=== PATIENT | female | born 1960 | race Caucasian/White ===

== ENCOUNTER → 2020-06-28 | Outpatient (CLI) | payer OTHER ==
--- NOTE | 2020-06-28 12:59 | XR ---
EXAMINATION TYPE: XR chest 2V DATE OF EXAM: 06/28/2020 COMPARISON: Chest x-ray CTA chest August 12, 2015 HISTORY: Covid 19 +, 2 weeks ago with chest pain TECHNIQUE: Frontal and lateral views of the chest are obtained. FINDINGS: There is no focal air space opacity, pleural effusion, or pneumothorax seen. The cardiac silhouette size remains within normal limits. The osseous structures are intact. Cholecystectomy cl ips are present. IMPRESSION: No acute cardiopulmonary process currently.
== END | disposition home or self-care (01) ==
LOC: RADXRMAIN 12:15
PROVIDERS: ATTEND Nurse Practitioner Family
DX: R07.1 Chest pain on breathing (principal)
CPT/HCPCS: 71046

== ENCOUNTER 2021-04-22 17:30 | Observation (INO) | payer OTHER ==
--- NOTE | 2021-04-22 18:58 | XR ---
EXAMINATION TYPE: XR chest 2V DATE OF EXAM: 04/22/2021 COMPARISON: 06/28/2020 HISTORY: Chest pain TECHNIQUE: 2 views FINDINGS: Heart and mediastinum are normal. Lungs are clear. Diaphragm is normal. Bony thorax is inta ct. Pulmonary vascularity is normal. IMPRESSION: Normal chest. No change
[2021-04-22 19:06] LABS: Basophils % (A) 1 %; Eosinophils # (A) 0.2 k/uL (0-0.7); Eosinophils % (A) 2 %; HCT 37.9 % (34.0-46.0); HGB 13.2 gm/dL (11.4-16.0); Lymphocytes # (A) 2.2 k/uL (1.0-4.8); Lymphocytes % (A) 30 %; MCH 31.7 pg (25.0-35.0); MCHC 34.7 g/dL (31.0-37.0); MCV 91.2 fL (80.0-100.0); Mean Platelet Volume 7.2; Monocytes # (A) 0.3 k/uL (0-1.0); Monocytes % (A) 4 %; Neutrophils # (A) 4.6 k/uL (1.3-7.7); Neutrophils % (A) 61 %; Platelet Count 238 k/uL (150-450); RBC 4.16 m/uL (3.80-5.40); RDW 12.3 % (11.5-15.5); WBC 7.5 k/uL (3.8-10.6)
[2021-04-22 19:21] LABS: ALT 71 U/L (4-34); AST 48 U/L (14-36); African American GFR (CKD) >90 (>60 ml/min/1.73 sqM); Albumin 4.5 g/dL (3.5-5.0); Alkaline Phosphatase 95 U/L (38-126); Anion Gap 11 mmol/L; Blood Urea Nitrogen 16 mg/dL (7-17); Calcium 9.8 mg/dL (8.4-10.2); Carbon Dioxide 24 mmol/L (22-30); Chloride 103 mmol/L (98-107); Glucose 143 mg/dL (74-99); Non-African American GFR(CKD) >90 (>60 ml/min/1.73 sqM); Sodium 138 mmol/L (137-145); Total Bilirubin 0.4 mg/dL (0.2-1.3); Total Protein 7.3 g/dL (6.3-8.2)
[2021-04-22 19:26] LABS: INR 0.9 (<1.2); Prothrombin Time 9.6 sec (9.0-12.0)
[2021-04-22 19:29] LABS: Partial Thromboplastin Time 21.6 sec (22.0-30.0)
--- NOTE | 2021-04-22 19:45 | ED ---
General Adult HPI - General Chief complaint: Chest Pain Stated complaint: Dyspnea Time Seen by Provider: 04/22/21 18:55 Source: patient, RN notes reviewed Mode of arrival: ambulatory Limitations: no limitations - History of Present Illness Initial comments: Patient is a pleasant 61-year-old female presenting to the emergency Department with shortness of breath. Patient is also having chest discomfort. Patient did have similar symptoms of chest discomfort and had her Physician with stent placement just a few days ago. Chest discomfort is somewhat mild and feels like pressure or indigestion. Patient is now having dyspnea which is a new symptom. Dyspnea does worsen with exertion. No leg pain or leg swelling. No orthopnea. Patient has been feeling fatigued and lightheaded - Related Data Home Medications Medication Instructions Recorded Confirmed Ascorbic Acid [Vitamin C] 500 mg PO DAILY 04/22/21 04/22/21 Atorvastatin [Lipitor] 40 mg PO HS 04/22/21 04/22/21 Cholecalciferol [Vitamin D3 (25 25 mcg PO DAILY 04/22/21 04/22/21 Mcg = 1000 Iu)] Levothyroxine Sodium [Synthroid] 137 mcg PO DAILY 04/22/21 04/22/21 Magnesium 250 mg PO DAILY 04/22/21 04/22/21 Multivitamins, Thera [Multivitamin 1 tab PO DAILY 04/22/21 04/22/21 (formulary)] Ticagrelor [Brilinta] 90 mg PO BID 04/22/21 04/22/21 Allergies Allergy/AdvReac Type Severity Reaction Status Date / Time Sulfa (Sulfonamide AdvReac Itching Verified 04/22/21 19:56 Antibiotics) Review of Systems ROS Statement: Those systems with pertinent positive or pertinent negative responses have been documented in the HPI. ROS Other: All systems not noted in ROS Statement are negative. Constitutional: Denies: weakness Eyes: Denies: eye pain ENT: Denies: ear pain Respiratory: Reports: as per HPI, dyspnea Cardiovascular: Reports: as per HPI, chest pain Endocrine: Reports: fatigue Gastrointestinal: Denies: abdominal pain Genitourinary: Denies: dysuria Musculoskeletal: Denies: back pain Skin: Denies: rash Neurological: Denies: weakness Past Medical History Past Medical History: Diabetes Mellitus, Hypertension, Thyroid Disorder History of Any Multi-Drug Resistant Organisms: None Reported Past Surgical History: Cholecystectomy Additional Past Surgical History / Comment(s): OVARY REMOVED/Novasure/GASTRIC BYPASS, Stent last week. Past Anesthesia/Blood Transfusion Reactions: Postoperative Nausea & Vomiting (PONV) Past Psychological History: Anxiety Smoking Status: Never smoker Past Alcohol Use History: Occasional Past Drug Use History: None Reported - Past Family History Brother(s) Family Medical History: Cancer Additional Family Medical History / Comment(s): MELANOMA Father Family Medical History: Coronary Artery Disease (CAD), Myocardial Infarction (ID) General Exam Limitations: no limitations General appearance: alert, in no apparent distress Head exam: Present: normocephalic Eye exam: Present: normal appearance Neck exam: Present: normal inspection Respiratory exam: Present: normal lung sounds bilaterally. Absent: respiratory distress, chest wall tenderness Cardiovascular Exam: Present: regular rate, normal rhythm Expanded Peripheral pulses: 2+: Radial (R), Radial (L), Posterior Tibialis (R), Posterior Tibialis (L) GI/Abdominal exam: Present: soft. Absent: tenderness Extremities exam: Present: normal inspection. Absent: pedal edema, calf tenderness Neurological exam: Present: alert Psychiatric exam: Present: normal affect, normal mood Skin exam: Present: normal color Course Vital Signs 04/22/21 04/22/21 17:31 19:15 Temperature 97.2 F L Pulse Rate 84 71 Pulse Rate [ 61 Right Pulse Oximetery] Respiratory 20 20 Rate Blood Pressure 131/70 O2 Sat by Pulse 100 100 Oximetry EKG Findings - EKG Comments: EKG Findings:: Normal sinus rhythm with rate of 72. MT 160. QRS 78. QT 410. QTc 448. Normal axis. Normal QRS. T wave inversion leads 3 and aVF. Medical Decision Making - Medical Decision Making Patient reevaluated and resting comfortably in bed. Patient states her procedure was done at [facility]. Patient and family updated on results and plan. Case was discussed with practitioner Chandrika, covering for Dr. Cardoso, who covers for Dr. Holland. - Lab Data Result diagrams: 04/22/21 18:54 04/22/21 18:54 Lab Results 04/22/21 04/22/21 04/22/21 Range/Units 18:54 18:54 18:54 WBC 7.5 (3.8-10.6) k/uL RBC 4.16 (3.80-5.40) m/uL Hgb 13.2 (11.4-16.0) gm/dL Hct 37.9 (34.0-46.0) % MCV 91.2 (80.0-100.0) fL MCH 31.7 (25.0-35.0) pg MCHC 34.7 (31.0-37.0) g/dL RDW 12.3 (11.5-15.5) % Plt Count 238 (150-450) k/uL MPV 7.2 Neutrophils % 61 % Lymphocytes % 30 % Monocytes % 4 % Eosinophils % 2 % Basophils % 1 % Neutrophils # 4.6 (1.3-7.7) k/uL Lymphocytes # 2.2 (1.0-4.8) k/uL Monocytes # 0.3 (0-1.0) k/uL Eosinophils # 0.2 (0-0.7) k/uL Basophils # 0.0 (0-0.2) k/uL PT 9.6 (9.0-12.0) sec INR 0.9 (<1.2) APTT 21.6 L (22.0-30.0) sec D-Dimer (<0.60) mg/L FEU Sodium 138 (137-145) mmol/L Potassium 4.0 (3.5-5.1) mmol/L Chloride 103 (98-107) mmol/L Carbon Dioxide 24 (22-30) mmol/L Anion Gap 11 mmol/L BUN 16 (7-17) mg/dL Creatinine 0.62 (0.52-1.04) mg/dL Est GFR (CKD-EPI)AfAm >90 (>60 ml/min/1.73 sqM) Est GFR (CKD-EPI)NonAf >90 (>60 ml/min/1.73 sqM) Glucose 143 H (74-99) mg/dL Calcium 9.8 (8.4-10.2) mg/dL Magnesium 2.0 (1.6-2.3) mg/dL Total Bilirubin 0.4 (0.2-1.3) mg/dL AST 48 H (14-36) U/L ALT 71 H (4-34) U/L Alkaline Phosphatase 95 (38-126) U/L Troponin I (0.000-0.034) ng/mL NT-Pro-B Natriuret Pep pg/mL Total Protein 7.3 (6.3-8.2) g/dL Albumin 4.5 (3.5-5.0) g/dL Coronavirus (PCR) (Not Detectd) 04/22/21 04/22/21 04/22/21 Range/Units 18:54 18:54 18:54 WBC (3.8-10.6) k/uL RBC (3.80-5.40) m/uL Hgb (11.4-16.0) gm/dL Hct (34.0-46.0) % MCV (80.0-100.0) fL MCH (25.0-35.0) pg MCHC (31.0-37.0) g/dL RDW (11.5-15.5) % Plt Count (150-450) k/uL MPV Neutrophils % % Lymphocytes % % Monocytes % % Eosinophils % % Basophils % % Neutrophils # (1.3-7.7) k/uL Lymphocytes # (1.0-4.8) k/uL Monocytes # (0-1.0) k/uL Eosinophils # (0-0.7) k/uL Basophils # (0-0.2) k/uL PT (9.0-12.0) sec INR (<1.2) APTT (22.0-30.0) sec D-Dimer 0.37 (<0.60) mg/L FEU Sodium (137-145) mmol/L Potassium (3.5-5.1) mmol/L Chloride (98-107) mmol/L Carbon Dioxide (22-30) mmol/L Anion Gap mmol/L BUN (7-17) mg/dL Creatinine (0.52-1.04) mg/dL Est GFR (CKD-EPI)AfAm (>60 ml/min/1.73 sqM) Est GFR (CKD-EPI)NonAf (>60 ml/min/1.73 sqM) Glucose (74-99) mg/dL Calcium (8.4-10.2) mg/dL Magnesium (1.6-2.3) mg/dL Total Bilirubin (0.2-1.3) mg/dL AST (14-36) U/L ALT (4-34) U/L Alkaline Phosphatase (38-126) U/L Troponin I <0.012 (0.000-0.034) ng/mL NT-Pro-B Natriuret Pep 61 pg/mL Total Protein (6.3-8.2) g/dL Albumin (3.5-5.0) g/dL Coronavirus (PCR) (Not Detectd) 04/22/21 Range/Units 20:22 WBC (3.8-10.6) k/uL RBC (3.80-5.40) m/uL Hgb (11.4-16.0) gm/dL Hct (34.0-46.0) % MCV (80.0-100.0) fL MCH (25.0-35.0) pg MCHC (31.0-37.0) g/dL RDW (11.5-15.5) % Plt Count (150-450) k/uL MPV Neutrophils % % Lymphocytes % % Monocytes % % Eosinophils % % Basophils % % Neutrophils # (1.3-7.7) k/uL Lymphocytes # (1.0-4.8) k/uL Monocytes # (0-1.0) k/uL Eosinophils # (0-0.7) k/uL Basophils # (0-0.2) k/uL PT (9.0-12.0) sec INR (<1.2) APTT (22.0-30.0) sec D-Dimer (<0.60) mg/L FEU Sodium (137-145) mmol/L Potassium (3.5-5.1) mmol/L Chloride (98-107) mmol/L Carbon Dioxide (22-30) mmol/L Anion Gap mmol/L BUN (7-17) mg/dL Creatinine (0.52-1.04) mg/dL Est GFR (CKD-EPI)AfAm (>60 ml/min/1.73 sqM) Est GFR (CKD-EPI)NonAf (>60 ml/min/1.73 sqM) Glucose (74-99) mg/dL Calcium (8.4-10.2) mg/dL Magnesium (1.6-2.3) mg/dL Total Bilirubin (0.2-1.3) mg/dL AST (14-36) U/L ALT (4-34) U/L Alkaline Phosphatase (38-126) U/L Troponin I (0.000-0.034) ng/mL NT-Pro-B Natriuret Pep pg/mL Total Protein (6.3-8.2) g/dL Albumin (3.5-5.0) g/dL Coronavirus (PCR) Not Detected (Not Detectd) - Radiology Data Radiology results: image reviewed (Chest x-ray shows no acute process) Disposition Clinical Impression: Chest pain, Dyspnea Disposition: ADMITTED IP TO THIS HOSP Is patient prescribed a controlled substance at d/c from ED?: No Referrals: Rachel Holland DO [Primary Care Provider] - 1-2 days Decision Time: 21:25
[2021-04-22] MEDS ORDERED: ASPIRIN 81 MG PO STA (21:25)
[2021-04-22] MEDS ORDERED: NITROGLYCERIN SL TABS 0.4 MG TAB SUBLINGUAL PRN (21:25)
[2021-04-22] MEDS: NITROGLYCERIN OINT 1 INCH/GM PACKET TOPICAL SCH (22:11)
[2021-04-23] MEDS: NITROGLYCERIN OINT 1 INCH/GM PACKET TOPICAL SCH (07:02)
[2021-04-23] MEDS ORDERED: CLOPIDOGREL 75 MG TAB PO STA (08:44)
[2021-04-23] MEDS ORDERED: ASPIRIN 325 MG TAB PO SCH (09:00)
[2021-04-23] MEDS: ASPIRIN 81 MG PO SCH (09:04)
[2021-04-23] MEDS: LEVOTHYROXINE 137 MCG TAB PO SCH (09:50)
--- NOTE | 2021-04-23 11:51 | ECHOF ---
Referral Reason:cad MEASUREMENTS -------- HEIGHT: 170.2 cm WEIGHT: 86.2 kg BP: RVIDd: 3.0 cm (< 3.3) IVSd: 1.1 cm (0.6 - 1.1) LVIDd: 3.7 cm (3.9 - 5.3) LVPWd: 1.2 cm (0.6 - 1.1) IVSs: 1.6 cm LVIDs: 3.2 cm LVPWs: 1.3 cm LA Diam: 3.7 cm (2.7 - 3.8) LAESV Index (A-L): 26.14 ml/m Ao Diam: 3.3 cm (2.0 - 3.7) AV Cusp: 1.9 cm (1.5 - 2.6) MV EXCURSION: 29.501 mm (> 18.000) MV EF SLOPE: 96 mm/s (70 - 150) EPSS: 0.3 cm MV E Arden: 0.48 m/s MV DecT: 255 ms MV A [place]den: 0.63 m/s MV E/A Ratio: 0.76 RAP: 5.00 mmHg RVSP: 21.41 mmHg FINDINGS -------- Sinus rhythm. This was a technically adequate study. The left ventricular size is normal. There is borderline concentric left ventricular hypertrophy. There is normal global left ventricular contractility. Overall left ventricular systolic function is normal with, an EF between 55 - 60 %. The right ventricle is normal in size. Normal LA size by volume 22+/-6 ml/m2. The right atrial size is normal. The aortic valve is trileaflet, and appears structurally normal. No aortic stenosis or regurgitation. The mitral valve is normal. Mild mitral regurgitation is present. The tricuspid valve appears structurally normal. Mild tricuspid regurgitation present. Right vent ricular systolic pressure is normal at < 35 mmHg. There is no pulmonic regurgitation present. The aortic root size is normal. There is no pericardial effusion. CONCLUSIONS -------- 1. There is borderline concentric left ventricular hypertrophy. 2. There is normal global left ventricular contractility. 3. Normal LA size by volume 22+/-6 ml/m2. 4. The aortic valve is trileaflet, and appears structurally normal. No aortic stenosis or regurgitati on. 5. Mild mitral regurgitation is present. 6. Mild tricuspid regurgitation present. SEXUAL ASSAULT RESPONSE COORDINATOR: Santa Winston RDCS
[2021-04-23 12:47] LABS: Chol/HDL Ratio 2.35 Ratio; HDL Cholesterol 47.3 mg/dL (40.00-60.00)
[2021-04-23 12:59] LABS: Triglycerides 40.3 mg/dL (0.00-149.00); VLDL Calculation 8.06 mg/dL (5.00-40.00)
--- NOTE | 2021-04-23 14:01 | CONS ---
CONSULTATION Mrs. Yun is a 61-year-old female who presented to the emergency room with symptoms of dyspnea and dizziness. She has been followed by Dr. Rodriguez and underwent calcium scoring that apparently was reported to be above 1000. Subsequently she underwent cardiac catheterization that revealed a single stent about a week ago. She was started on Brilinta, and since that time she was getting more dyspneic and dizzy. She took her last Brilinta on Wednesday evening and she was supposed to start Plavix yesterday but did not receive the prescription. Because of the persistent dyspnea and dizziness, she came into the emergency room. The patient has epigastric discomfort and discomfort in the lower chest that she had prior to her stenting, and that has not changed and is not activity-related. She denies any palpitations. She has no syncope. No peripheral edema. No PND or orthopnea. Her coronary risk factors are remarkable for history of hyperlipidemia and diabetes. She is a nonsmoker. MEDICATION: Her medications at home include Lipitor 40 mg daily, levothyroxine, aspirin once a day. REVIEW OF SYSTEMS: RESPIRATORY SYSTEM: She has no recent wheezing or cough. No history of documented history of asthma or emphysema. GI SYSTEM: No recent GI bleeding. No peptic ulcer disease. SYSTEM: No dysuria or hematuria. PHYSICAL EXAMINATION: She is a 61-year-old female, alert, oriented, in no apparent distress. Blood pressure running in the 100s to 130s with a heart rate in the 60s. HEAD: Normocephalic. EYES: Sclerae anicteric. NECK: Good carotid upstroke. No bruit. No jugular venous distention. LUNGS: Clear to auscultation. HEART: Regular rate and rhythm. S1, S2. No S3. No S4. No murmur or rub. ABDOMEN: Soft, mild epigastric tenderness. EXTREMITIES: No edema. Intact distal pulses. Right radial pulse intact. LAB DATA: BUN and creatinine 16 and 0.62. Her initial troponin was less than 0.012, then 0.056, then 0.044. Hemoglobin 13.2. Her EKG revealed a sinus mechanism, normal axis and intervals with nonspecific ST-T wave changes. Her chest x-ray shows no acute changes. IMPRESSION: 1. Symptoms of progressive dyspnea, most likely related to the Brilinta. 2. Status post recent stenting. 3. Mild troponin elevation. No evidence to suggest acute stent thrombosis based on her history. 4. Chest discomfort; appears to be chronic. 5. History of hiatal hernia. 6. Hyperlipidemia. RECOMMENDATIONS: I will give her Plavix 300 mg today. Continue her statin and the aspirin. I will obtain echocardiogram with Doppler. I will try to obtain the report of her recent intervention and depending on that, further recommendations will be made. Thank you for this consult. Will follow with you. CLAUDIA / IJN: [id number] /
[2021-04-23 19:41] LABS: Glucose,Whole Blood 127 mg/dL (75-99)
[2021-04-23] MEDS ORDERED: ALPRAZolam 0.25 MG TAB PO STA (20:58)
[2021-04-23] MEDS ORDERED: ATORVASTATIN 40 MG TAB PO SCH (21:00)
--- NOTE | 2021-04-23 22:21 | P.HPIM ---
History of Present Illness H&P Date: 04/23/21 Chief Complaint: Dizziness Patient is a 61-year-old female with a known history of hypertension, diabetes type 2, hypothyroidism, anxiety and recent history of stent placement about a week ago presents to ER with complaints of dizziness and lightheadedness. She was discharged home on aspirin and Brilinta. Patient states that she took her Brilinta dose on Wednesday evening and since then she has been having dizziness and also shortness of breath. Feels like pressure and indigestion. Otherwise no orthopnea. No leg swelling. No chest pain. Patient has been feeling fatigued and lightheadedness. Came to ER for evaluation. Chest x-ray showed normal chest. No change. EKG showed normal sinus rhythm. Laboratory data showed WBC 7.5 hemoglobin 13.1 platelets 238 D-dimer is 0.37 AST 48 ALT 71 alk phos is 95 and troponin 0 0.012, 0.056 and 0.044, LDL could not be calculated. Cholesterol 111. Coronavirus PCR not detected. Review of Systems Constitutional: Patient denies any fever or chills . No generalized weakness or weight loss. Abdomen: Patient denied nausea vomiting and diarrhea and abdominal pain. Cardiovascular: Patient denies any chest pain or short of breath no palpitations.Patient does have dizziness and shortness of breath. Respiratory: patient denied any cough or sputum production. No shortness of breath Neurologic: Patient denied any numbness or tingling headache. Musculoskeletal: Patient denies any complaints of joint swelling or deformity. Skin: Negative Psychiatric: Negative Endocrine: No heat or cold intolerance. No recent weight gain. Genitourinary: No dysuria or hematuria. All other 14 point ROS negative except the above Past Medical History Past Medical History: Diabetes Mellitus, Hypertension, Thyroid Disorder History of Any Multi-Drug Resistant Organisms: None Reported Past Surgical History: Cholecystectomy Additional Past Surgical History / Comment(s): OVARY REMOVED/Novasure/GASTRIC BYPASS, Stent last week. Past Anesthesia/Blood Transfusion Reactions: Postoperative Nausea & Vomiting (PONV) Past Psychological History: Anxiety Smoking Status: Never smoker Past Alcohol Use History: Occasional Past Drug Use History: None Reported - Past Family History Brother(s) Family Medical History: Cancer Additional Family Medical History / Comment(s): MELANOMA Father Family Medical History: Coronary Artery Disease (CAD), Myocardial Infarction (OR) Medications and Allergies Home Medications Medication Instructions Recorded Confirmed Type Ascorbic Acid [Vitamin C] 500 mg PO DAILY 04/22/21 04/22/21 History Atorvastatin [Lipitor] 40 mg PO HS 04/22/21 04/22/21 History Cholecalciferol [Vitamin D3 (25 25 mcg PO DAILY 04/22/21 04/22/21 History Mcg = 1000 Iu)] Levothyroxine Sodium [Synthroid] 137 mcg PO DAILY 04/22/21 04/22/21 History Magnesium 250 mg PO DAILY 04/22/21 04/22/21 History Multivitamins, Thera [Multivitamin 1 tab PO DAILY 04/22/21 04/22/21 History (formulary)] Ticagrelor [Brilinta] 90 mg PO BID 04/22/21 04/22/21 History Allergies Allergy/AdvReac Type Severity Reaction Status Date / Time Sulfa (Sulfonamide AdvReac Itching Verified 04/22/21 19:56 Antibiotics) Physical Exam Vitals: Vital Signs Temp Pulse Pulse Resp BP Pulse Ox 04/23/21 11:00 60 18 104/66 98 04/23/21 10:30 60 04/23/21 10:00 59 L 18 110/58 97 04/23/21 09:00 65 18 106/59 97 04/23/21 08:51 58 L 18 98 04/23/21 08:00 98.2 F 61 18 111/69 97 04/23/21 05:44 67 17 107/69 97 04/22/21 22:06 62 20 137/73 99 04/22/21 19:15 61 61 18 131/70 98 04/22/21 17:31 97.2 F L 84 20 100 Intake and Output 04/22/21 04/23/21 04/23/21 22:59 06:59 14:59 Other: Weight 86.183 kg PHYSICAL EXAMINATION: Patient is lying in the bed comfortably, no acute distress, awake alert and oriented.. HEENT: Normocephalic. Neck is supple. Pupils reactive. Nostrils clear. Oral cavity is moist. Neck reveals no JVD, carotid bruits, or thyromegaly. CHEST EXAMINATION: Trachea is central. Symmetrical expansion. Lung siddiqi clear to auscultation and percussion. CARDIAC: Normal S1, S2 with no gallops. No murmurs ABDOMEN: Soft. Bowel sounds normal. No organomegaly. No abdominal bruits. Extremities: reveal no edema. No clubbing or cyanosis Neurologically awake, alert, oriented x3 with well-coordinated movements. No focal deficits noted Skin: No rash or skin lesions. Psychiatric: Cooperative. Nonsuicidal Musculoskeletal: No joint swelling or deformity. Normal range of motion. Results CBC & Chem 7: 04/22/21 18:54 04/22/21 18:54 Labs: Abnormal Lab Results - Last 24 Hours (Table) 04/22/21 04/22/21 04/22/21 Range/Units 18:54 18:54 22:24 APTT 21.6 L (22.0-30.0) sec Glucose 143 H (74-99) mg/dL AST 48 H (14-36) U/L ALT 71 H (4-34) U/L Troponin I 0.056 H* (0.000-0.034) ng/mL 04/23/21 Range/Units 00:35 APTT (22.0-30.0) sec Glucose (74-99) mg/dL AST (14-36) U/L ALT (4-34) U/L Troponin I 0.044 H* (0.000-0.034) ng/mL Thrombosis Risk Factor Assmnt - DVT/VTE Prophylaxis DVT/VTE Prophylaxis: Pharmacologic Prophylaxis ordered Assessment and Plan Assessment: Dizziness and worsening shortness of breath. Likely related to Brilinta use Status post cardiac catheterization and stent placement about a week ago Mild elevated troponin level. Trending down. Unlikely acute in-stent thrombosis. Hyperlipidemia Mild transaminitis. DVT prophylaxis. Plan: Patient will be continued on telemetry monitoring. Patient's blood pressure is stable. No hypotension. D-dimer is also not elevated. BNP not elevated. Her symptoms are likely started after Brilinta use. Cardiology is following. Currently on hold and started on Plavix. 2D echocardiogram was ordered. Continue to follow closely. Continue with home medications.
[2021-04-24 05:37] VITALS: BP 100/66; PULSE 69; TEMP 98
[2021-04-24 06:18] LABS: Glucose,Whole Blood 171 mg/dL (75-99)
[2021-04-24] MEDS: LEVOTHYROXINE 137 MCG TAB PO SCH (06:24)
[2021-04-24 07:15] LABS: ALT 49 U/L (4-34); AST 31 U/L (14-36); African American GFR (CKD) >90 (>60 ml/min/1.73 sqM); Albumin 3.6 g/dL (3.5-5.0); Alkaline Phosphatase 74 U/L (38-126); Anion Gap 7 mmol/L; Blood Urea Nitrogen 17 mg/dL (7-17); Calcium 9.2 mg/dL (8.4-10.2); Carbon Dioxide 26 mmol/L (22-30); Chloride 105 mmol/L (98-107); Glucose 158 mg/dL (74-99); Non-African American GFR(CKD) >90 (>60 ml/min/1.73 sqM); Potassium 4.2 mmol/L (3.5-5.1); Sodium 138 mmol/L (137-145); Total Bilirubin 0.2 mg/dL (0.2-1.3); Total Protein 6.2 g/dL (6.3-8.2)
[2021-04-24] MEDS: ASPIRIN 81 MG PO SCH (08:31)
[2021-04-24] MEDS ORDERED: CLOPIDOGREL 75 MG TAB PO SCH (09:00)
[2021-04-24] MEDS ORDERED: HEPARIN SODIUM,PORCINE/PF 5,000 UNIT/0.5 ML SYRINGE SQ SCH (09:00)
[2021-04-24 11:18] VITALS: RESP 16
[2021-04-24 11:34] LABS: Glucose,Whole Blood 140 mg/dL (75-99)
--- NOTE | 2021-04-24 12:46 | P.PN ---
Subjective Progress Note Date: 04/24/21 HISTORY OF PRESENT ILLNESS: This is a 61-year-old female who follows with Dr. 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 Patient recently underwent cardiac catheterization with stent placement to the LAD. Patient presented to the hospital with shortness of breath. Her Brilinta was discontinued and she was switched to Plavix. Patient states her shortness of breath has resolved. She denies chest pain or pressure. Her vital signs are stable. She is hoping to be discharged home today. Echocardiogram completed revealed ejection fraction 55-60%. Mild mitral regurgitation. Mild tricuspid regurgitation. PHYSICAL EXAM: VITAL SIGNS: Reviewed. GENERAL: Well-developed in no acute distress. NECK: Supple. No JVD or thyromegaly LUNGS: Respirations even and unlabored. Lungs essentially clear to auscultation bilaterally. HEART: Regular rate and rhythm. S1 and S2 heard. EXTREMITIES: Normal range of motion. No clubbing or cyanosis. Peripheral pulses intact. No lower extremity edema ASSESSMENT: Shortness of breath, secondary to Brilinta, resolved Coronary artery disease with recent stenting to LAD Mild troponin elevation, likely secondary to recent cardiac catheterization History of hiatal hernia Hyperlipidemia PLAN: Continue current cardiac medications. Patient is stable for discharge home from a cardiac perspective. She is to follow up with her primary reaming machine operator for plastic. Nurse practitioner note has been reviewed by physician. Signing provider agrees with the documented findings, assessment, and plan of care. Objective - Vital Signs Vital signs: Vital Signs Temp 98.0 F 04/24/21 05:37 Pulse 69 04/24/21 08:00 Resp 16 04/24/21 08:00 BP 100/66 04/24/21 05:37 Pulse Ox 96 04/24/21 05:37 Intake & Output 04/23/21 04/24/21 04/24/21 18:59 06:59 18:59 Intake Total 240 Balance 240 Weight 85.3 kg Intake: Oral 240 Other: # Voids 1 - Labs CBC & Chem 7: 04/22/21 18:54 04/24/21 05:35 Labs: Abnormal Lab Results - Last 24 Hours (Table) 04/23/21 04/24/21 04/24/21 Range/Units 19:40 05:35 06:16 Glucose 158 H (74-99) mg/dL POC Glucose (mg/dL) 127 H 171 H (75-99) mg/dL ALT 49 H (4-34) U/L Total Protein 6.2 L (6.3-8.2) g/dL 04/24/21 Range/Units 11:32 Glucose (74-99) mg/dL POC Glucose (mg/dL) 140 H (75-99) mg/dL ALT (4-34) U/L Total Protein (6.3-8.2) g/dL
== END 2021-04-24 14:51 | disposition home or self-care (01) ==
LOC: EC 17:30 → 6NMEDSUR 21:25 → 1SOBS 04-23 00:44 → 6NMEDSUR 04-23 13:55 → 3SCARD 04-23 16:10
PROVIDERS: ADMIT Hospitalist; ATTEND Hospitalist
DX: R06.02 Shortness of breath (principal); R42 Dizziness and giddiness; T45.525A Adverse effect of antithrombotic drugs, initial encounter; I25.10 Atherosclerotic heart disease of native coronary artery without angina pectoris; I08.1 Rheumatic disorders of both mitral and tricuspid valves; K44.9 Diaphragmatic hernia without obstruction or gangrene; E03.9 Hypothyroidism, unspecified; R74.01 Elevation of levels of liver transaminase levels; R79.89 Other specified abnormal findings of blood chemistry; I10 Essential (primary) hypertension; E78.5 Hyperlipidemia, unspecified; E11.9 Type 2 diabetes mellitus without complications; R07.89 Other chest pain; R10.13 Epigastric pain; F41.9 Anxiety disorder, unspecified; Z20.822 Contact with and (suspected) exposure to COVID-19; Z79.890 Hormone replacement therapy; Z79.02 Long term (current) use of antithrombotics/antiplatelets; Z79.899 Other long term (current) drug therapy; Z88.2 Allergy status to sulfonamides; Z90.49 Acquired absence of other specified parts of digestive tract; Z98.84 Bariatric surgery status; Z90.721 Acquired absence of ovaries, unilateral; Z95.5 Presence of coronary angioplasty implant and graft; Z80.8 Family history of malignant neoplasm of other organs or systems; Z82.49 Family history of ischemic heart disease and other diseases of the circulatory system
CPT/HCPCS: 96372; 99285; 36415; 93005; 93306; 85379; 83880; 80061; 80053 ×2; 83735; 84484 ×2; 85025; 85610; 85730; 87635; 71046; G0378 ×5; J1644

== ENCOUNTER → 2021-05-02 | Outpatient (CLI) | payer OTHER ==
--- NOTE | 2021-05-06 13:42 | MM ---
Reason for exam: screening (asymptomatic). Last mammogram was performed 6 years and 11 months ago. History: Patient history of other cancer. Family history of breast cancer in cousin. Physical Findings: A clinical breast exam by your physician is recommended on an annual basis and results should be correlated with mammographic findings. MG 3D Screening Mammo W/Cad Bilateral CC and MLO view(s) were taken. Prior study comparison: January 05, 2020, mammogram, performed at [facility]. May 29, 2014, bilateral MG screening mammo w CAD. August 09, 2012, bilateral digital screening mammo w/CAD. There are scattered fibroglandular densities. Central and medial right asymmetric densities are unchanged. Benign vascular calcifications. No significant changes when compared with prior studies. ASSESSMENT: Benign, BI-RAD 2 RECOMMENDATION: Routine screening mammogram of both breasts in 1 year. Patient should continue monthly self breast exams. A negative report should not preclude additional follow up of suspicious palpable abnormalities.
== END | disposition home or self-care (01) ==
LOC: RADMAMWWP 16:40
PROVIDERS: ATTEND Family Medicine
DX: Z12.31 Encounter for screening mammogram for malignant neoplasm of breast (principal); Z80.3 Family history of malignant neoplasm of breast; Z85.89 Personal history of malignant neoplasm of other organs and systems
CPT/HCPCS: 77063; 77067

== ENCOUNTER 2021-05-17 04:51 | Emergency (ER) | payer OTHER ==
[2021-05-17 04:59] VITALS: BP 131/67; PULSE 61; RESP 22; TEMP 97.9
--- NOTE | 2021-05-17 05:49 | ED ---
URI HPI - General Chief Complaint: Upper Respiratory Infection Stated Complaint: Congestion, Covid Exposure Time Seen by Provider: 05/17/21 05:49 Source: patient, RN notes reviewed, old records reviewed Mode of arrival: ambulatory Limitations: no limitations - History of Present Illness Initial Comments: This is a 61-year-old female to the emergency department today. Presents today for evaluation regards to home coronavirus exposure with cough and congestion. Patient otherwise not feeling too well. Denying fever and medical history is positive for diabetes MD Complaint: fever, cough, sore throat -: days(s) Severity: moderate Severity scale (1-10): 4 Quality: aching Consistency: intermittent Improves With: nothing Worsens With: nothing Context: sick contacts, recent travel Associated Symptoms: chills, myalgias, nasal congestion, sore throat Treatments Prior to Arrival: none - Related Data Home Medications Medication Instructions Recorded Confirmed Ascorbic Acid [Vitamin C] 500 mg PO DAILY 04/22/21 04/22/21 Atorvastatin [Lipitor] 40 mg PO HS 04/22/21 04/22/21 Cholecalciferol [Vitamin D3 (25 25 mcg PO DAILY 04/22/21 04/22/21 Mcg = 1000 Iu)] Levothyroxine Sodium [Synthroid] 137 mcg PO DAILY 04/22/21 04/22/21 Magnesium 250 mg PO DAILY 04/22/21 04/22/21 Multivitamins, Thera [Multivitamin 1 tab PO DAILY 04/22/21 04/22/21 (formulary)] Previous Rx's Medication Instructions Recorded Aspirin 81 mg PO DAILY #30 tab 04/24/21 Clopidogrel [Plavix] 75 mg PO DAILY #30 tab 04/24/21 Allergies Allergy/AdvReac Type Severity Reaction Status Date / Time Sulfa (Sulfonamide AdvReac Itching Verified 05/17/21 05:00 Antibiotics) Review of Systems ROS Statement: Those systems with pertinent positive or pertinent negative responses have been documented in the HPI. ROS Other: All systems not noted in ROS Statement are negative. Past Medical History Past Medical History: Diabetes Mellitus, Thyroid Disorder History of Any Multi-Drug Resistant Organisms: None Reported Past Surgical History: Cholecystectomy, Heart Catheterization With Stent Additional Past Surgical History / Comment(s): OVARY REMOVED/Novasure/GASTRIC BYPASS, Stent last week. Past Anesthesia/Blood Transfusion Reactions: Postoperative Nausea & Vomiting (PONV) Past Psychological History: Anxiety Smoking Status: Never smoker Past Alcohol Use History: Occasional Past Drug Use History: None Reported - Past Family History Brother(s) Family Medical History: Cancer Additional Family Medical History / Comment(s): MELANOMA Father Family Medical History: Coronary Artery Disease (CAD), Myocardial Infarction (DC) General Exam Limitations: no limitations General appearance: alert, in no apparent distress Head exam: Present: atraumatic, normocephalic, normal inspection Eye exam: Present: normal appearance, PERRL, EOMI. Absent: scleral icterus, conjunctival injection, periorbital swelling ENT exam: Present: normal exam, mucous membranes moist Neck exam: Present: normal inspection. Absent: tenderness, meningismus, lymphadenopathy Respiratory exam: Present: normal lung sounds bilaterally. Absent: respiratory distress, wheezes, rales, rhonchi, stridor Cardiovascular Exam: Present: regular rate, normal rhythm, normal heart sounds. Absent: systolic murmur, diastolic murmur, rubs, gallop, clicks GI/Abdominal exam: Present: soft, normal bowel sounds. Absent: distended, tenderness, guarding, rebound, rigid Extremities exam: Present: normal inspection, full ROM, normal capillary refill. Absent: tenderness, pedal edema, joint swelling, calf tenderness Back exam: Present: normal inspection Neurological exam: Present: alert, oriented X3, CN II-XII intact Psychiatric exam: Present: normal affect, normal mood Skin exam: Present: warm, dry, intact, normal color. Absent: rash Course Vital Signs 05/17/21 04:54 Temperature 97.9 F Pulse Rate 61 Respiratory 22 Rate Blood Pressure 131/67 O2 Sat by Pulse 100 Oximetry - Reevaluation(s) Reevaluation #1: Medical record is reviewed Patient symptoms are improved here in the emergency department Patient informed results and questions are answered Medical Decision Making - Medical Decision Making 61 female DF for evaluation of upper respiratory infection coronavirus exposure patient is coronavirus negative and can be discharged home - Lab Data Lab Results 05/17/21 Range/Units 05:05 Coronavirus (PCR) Not Detected (Not Detectd) - Radiology Data Radiology results: report reviewed (Chest x-rays negative for acute disease), image reviewed Disposition Clinical Impression: Acute upper respiratory infection Disposition: HOME SELF-CARE Condition: Good Instructions (If sedation given, give patient instructions): Upper Respiratory Infection (ED) Is patient prescribed a controlled substance at d/c from ED?: No Referrals: Rachel Kat DO [Primary Care Provider] - 1-2 days
--- NOTE | 2021-05-17 05:59 | XR ---
EXAMINATION TYPE: XR chest 1V portable DATE OF EXAM: 05/17/2021 COMPARISON: 04/22/2021 HISTORY: Congestion. TECHNIQUE: FINDINGS: Heart and mediastinum are normal. Lungs are clear. Diaphragm is normal. Bony thorax is inta ct. IMPRESSION: Normal chest. No change.
== END 2021-05-17 06:55 | disposition home or self-care (01) ==
LOC: EC 04:51
DX: J06.9 Acute upper respiratory infection, unspecified (principal); E11.9 Type 2 diabetes mellitus without complications; F41.9 Anxiety disorder, unspecified
CPT/HCPCS: 71045; 87635; 99283

== ENCOUNTER → 2022-01-01 | Outpatient (CLI) | payer OTHER ==
--- NOTE | 2022-01-01 14:29 | P.SLEEP ---
History of Present Illness DATE: 01/01/2022 CONSULTATION/NEW PATIENT EVALUATION HISTORY OF PRESENT ILLNESS/SLEEP-WAKE EVALUATION: 61year old lady had been evaluated in the sleep center for tiredness and possible obstructive sleep apnea hypopnea syndrome. SLEEP SCHEDULE: Usually sleep schedule on weekdays from 10 PM to 47 AM, during days off from midnight until 89 AM. FALLING ASLEEP: Sometimes patient has problems with falling asleep. Although no TV in bedroom DURING SLEEP: Patient usually sleeps on the back position. Positive history of restless legs and leg cramps No history of hypnogogical hallucinations, sleep paralysis, or cataplexy. Patient has multiple awakenings from sleep up to 5 times with one episode of nocturia. DURING THE DAY/WAKE STATE: Patient will tiredness during the day sometimes may take naps. Florence sleepiness scale is significantly increased to 16. PAST MEDICAL HISTORY: Coronary artery disease, arthritis, episodes of migraine, hypothyroidism, diabetes mellitus, history of iron deficiency anemia, history of vertigo. PAST SURGICAL HISTORY: Stent insertion to coronary artery disease, gastric bypass, cholecystectomy. MEDICATIONS: Clopidogrel 75 mg once a day, GERD events 10 mg once a day, atorvastatin 40 mg once a day, levothyroxine 137 g once a day, aspirin 81 mg once a day, meclizine on a when necessary. SOCIAL HISTORY: Negative for smoking, alcohol consumption occasional. FAMILY HISTORY: Hypertension, heart problems, cancer, thyroid problems, diabetes. REVIEW OF SYSTEMS: Multiple awakenings from sleep, tiredness and sleepiness during the day. No fevers. No double vision. No recent chest pain. No shortness of breath. No abdominal pain. No bleeding episodes. No blood in urine. No s eizure episodes. PHYSICAL EXAMINATION: GENERAL: A pleasant patient without any distress. VITAL SIGNS: BP 150/75 , HR 70 , RR 16 , weight 205.8 pounds, height 5 foot 6 inches, body mass index 33.0 . HEENT: PERRLA, EOMI. Evaluation of oropharynx showed tongue protrudes midline, wide pillars, short distance between soft palate and posterior pharyngeal wall. NECK: Supple. No JVD. Thyroid is not palpable. 13 inches in circumference. LUNGS: Clear to percussion and to auscultation. Good air exchange. No wheezing or rhonchi. HEART: S1, S2 regular. No murmurs, gallops or rubs. ABDOMEN: Soft and nontender. Bowel sounds are present. No organomegaly appreciated. EXTREMITIES: No clubbing or cyanosis. PATENT LEATHER SORTER: Awake, alert, and oriented x3. Cranial nerves 2 to 7 intact. There is no fasciculation or atrophy noted. No focal deficits observed. ASSESSMENT: 1. Multiple awakenings from sleep. Small oropharyngeal air space. Significant excessive daytime sleepiness Florence Sleepiness Scale is 16. Possible obstructive sleep apnea hypopnea syndrome. 2. Coronary artery disease status post stent insertion. 3 hypothyroidism. 4. Migraines. 5 diabetes mellitus. 6. Episodes of vertigo. 7. History of iron deficiency anemia. 8. Status post gastric bypass surgery. 9. Status post cholecystectomy. 10. Restless leg symptoms and the history of leg cramps. PLAN: 1. Polysomnography for evaluation of patient's breathing during sleep and to check for possible leg movements. 2. CPAP/BiPAP titration if sleep study confirms obstructive sleep apnea- hypopnea syndrome. 3. Preferable position during sleep on the side. 4. No driving if patient feels any sleepiness. Patient is aware of civil and criminal liability for unsafe driving. 5. Sleep hygiene with regular sleep time for at least 7.5-8 hours. 6. Watching weight. 7. We may consider multiple sleep latency test if sleep study will be negative for any physical abnormalities of sleep. Thank you very much for referring this for consultation Sincerely, Carlyle Giles MD, PhD, FAASM. Diplomat of [place] [employer], Sleep Medicine Board by [place] [employer] [place] [employer] [facility] [place] Past Medical History Past Medical History: Diabetes Mellitus, Thyroid Disorder History of Any Multi-Drug Resistant Organisms: None Reported Past Surgical History: Cholecystectomy, Heart Catheterization With Stent Additional Past Surgical History / Comment(s): OVARY REMOVED/Novasure/GASTRIC BYPASS, Stent last week. Past Anesthesia/Blood Transfusion Reactions: Postoperative Nausea & Vomiting (PONV) Past Psychological History: Anxiety Smoking Status: Never smoker Past Alcohol Use History: Occasional Past Drug Use History: None Reported - Past Family History Brother(s) Family Medical History: Cancer Additional Family Medical History / Comment(s): MELANOMA Father Family Medical History: Coronary Artery Disease (CAD), Myocardial Infarction (MO) Medications and Allergies Home Medications Medication Instructions Recorded Confirmed Type Ascorbic Acid [Vitamin C] 500 mg PO DAILY 04/22/21 04/22/21 History Atorvastatin [Lipitor] 40 mg PO HS 04/22/21 04/22/21 History Cholecalciferol [Vitamin D3 (25 25 mcg PO DAILY 04/22/21 04/22/21 History Mcg = 1000 Iu)] Levothyroxine Sodium [Synthroid] 137 mcg PO DAILY 04/22/21 04/22/21 History Magnesium 250 mg PO DAILY 04/22/21 04/22/21 History Multivitamins, Thera [Multivitamin 1 tab PO DAILY 04/22/21 04/22/21 History (formulary)] Aspirin 81 mg PO DAILY #30 tab 04/24/21 Rx Clopidogrel [Plavix] 75 mg PO DAILY #30 tab 04/24/21 Rx Allergies Allergy/AdvReac Type Severity Reaction Status Date / Time Sulfa (Sulfonamide AdvReac Itching Verified 05/17/21 05:00 Antibiotics) Sleep Note - Sleep Note Sleep Note: Temperature: Pulse Rate: Respiratory Rate: Blood Pressure: SpO2: Height: Weight: BMI: Neck Circumference:
== END ==
LOC: SLEEP 13:07
PROVIDERS: ATTEND Internal Medicine
DX: G47.33 Obstructive sleep apnea (adult) (pediatric) (principal); I25.10 Atherosclerotic heart disease of native coronary artery without angina pectoris; Z95.5 Presence of coronary angioplasty implant and graft; E03.9 Hypothyroidism, unspecified; G43.909 Migraine, unspecified, not intractable, without status migrainosus; E11.9 Type 2 diabetes mellitus without complications; R42 Dizziness and giddiness; Z86.2 Personal history of diseases of the blood and blood-forming organs and certain disorders involving the immune mechanism; Z98.84 Bariatric surgery status; Z90.49 Acquired absence of other specified parts of digestive tract; G25.81 Restless legs syndrome; Z79.890 Hormone replacement therapy; Z79.82 Long term (current) use of aspirin; Z88.2 Allergy status to sulfonamides
CPT/HCPCS: 99211

== ENCOUNTER → 2023-04-07 | Outpatient (CLI) | payer OTHER ==
--- NOTE | 2023-04-07 17:49 | XR ---
EXAMINATION TYPE: XR pelvis AP view DATE OF EXAM: 04/07/2023 4:14 PM INDICATION: Patient age:Female; 62 years old; Reason for study: M54.16; [facility]. COMPARISON: None TECHNIQUE: The pelvis was examined in a single projection. FINDINGS: There is no evidence of fracture or dislocation. Both SI joints are intact. There is no sof t tissue abnormality. Right-sided pelvic phleboliths identified. IMPRESSION: No acute osseous pathology.
--- NOTE | 2023-04-07 17:50 | XR ---
EXAMINATION TYPE: XR lumbosacral spine min 4V DATE OF EXAM: 04/07/2023 4:14 PM INDICATION: Patient age:Female; 62 years old; Reason for study: M54.16; [facility]. COMPARISON: Pelvic radiograph the same date TECHNIQUE: Frontal, lateral , bilateral oblique and coned in L5-S1 lateral views of the spine. FINDINGS: There are 5 lumbar type vertebral bodies identified. No evidence of any acute osseous patho logy. No evidence of loss of vertebral body height is seen. There is normal alignment of the lumbar vertebral bodies. Multilevel disc space narrowing with endplate sclerosis and anterior osteophytosis. Cholecystectomy clips in the right upper quadrant. 1.1 cm calculus within the region of the lower po le left kidney. IMPRESSION: 1. No acute process. 2. Mild multilevel degenerative disc disease. 3. Left renal calculus.
== END | disposition home or self-care (01) ==
LOC: RADXRMAIN 15:47
PROVIDERS: ATTEND Family Medicine
DX: M51.16 Intervertebral disc disorders with radiculopathy, lumbar region (principal); N20.0 Calculus of kidney
CPT/HCPCS: 72110; 72170

== ENCOUNTER → 2023-05-03 | Outpatient (CLI) | payer OTHER ==
--- NOTE | 2023-05-03 09:31 | MM ---
Reason for Exam: Screening (asymptomatic). Last mammogram was performed 2 year(s) and 0 month(s) ago. Patient History: Menarche at age 14. First Full-Term at age 22. Postmenopausal. Other cancer. Maternal cousin had breast cancer. Risk Values: Lena 5 year model risk: 1.3%. NCI Lifetime model risk: 6.4%. Prior Study Comparison: 05/29/2014 Bilateral Screening Mammogram, [facility]. 01/05/2020 Screening Mammogram, [facility]. 05/02/2021 Bilateral Screening Mammogram, [facility]. Tissue Density: The breast tissue is heterogeneously dense. This may lower the sensitivity of mammography. Findings: Analyzed By CAD. There is no suspicious group of microcalcifications or new suspicious mass. There is no suspicious group of microcalcifications or new suspicious mass. Benign-appearing calcifications right breast. Overall Assessment: Benign, BI-RAD 2 Management: Screening Mammogram of both breasts in [address] [facility] will attempt to contact patient to return for supplemental views and ultrasound if indicated. Patient should continue monthly self-breast exams. A clinical breast exam by your physician is recommended on an annual basis. This exam should not preclude additional follow-up of suspicious palpable abnormalities. Note on Lena scores and lifetime risk: 1. A Lena score greater than 3% is considered moderate risk. If this is the case, consider specialist referral to assess eligibility for a risk reducing agent. 2. If overall lifetime risk for the development of breast cancer is 20% or higher, the patient may qualify for future screening with alternating mammogram and breast MRI. Electronically signed and approved by: Wally Moore DO
== END | disposition home or self-care (01) ==
LOC: RADMAMWWP 07:20
PROVIDERS: ATTEND Family Medicine
DX: Z12.31 Encounter for screening mammogram for malignant neoplasm of breast (principal); Z78.0 Asymptomatic menopausal state; Z80.3 Family history of malignant neoplasm of breast
CPT/HCPCS: 77063; 77067

== ENCOUNTER → 2023-11-11 | Outpatient (CLI) | payer OTHER ==
--- NOTE | 2023-11-11 10:56 | MR ---
EXAMINATION TYPE: MR lumbar spine wo con DATE OF EXAM: 11/11/2023 COMPARISON: NONE HISTORY: Neck and lower back pain, headaches, LUE/BLE radiculopathy. TECHNIQUE: T1 and T2 axial and sagittal images of the lumbar spine are submitted. FINDINGS: There is no abnormal signal seen within the visualized spinal cord or paraspinal soft tissu es. At L1-2 there is hypertrophic spurring anteriorly with mild degenerative disc disease. At L2-3 there is no disc herniation, canal stenosis, or foraminal encroachment. At L3-4 there is disc desiccation with circumferential disc bulging and. There is hypertrophy of the facet joints and ligamentum flavum but no discrete herniation. There is mild bilateral foraminal encr oachment. At L4-5 there is disc desiccation with annular tear and focal central disc of broad-based small herni ation of protrusion. Hypertrophy of the ligamentum flavum and facet joints results in borderline cent ral stenosis and mild bilateral foraminal encroachment. At L5-S1 there is disc desiccation with annular tear and small central disc protrusion abutting the a nterior margin of the thecal sac. Neural foramina are patent. No canal stenosis. IMPRESSION: 1. Annular tear and small central disc protrusion\herniation L4-5 and L5-S1. 2. Multilevel mild disc disease and foraminal encroachment. EXAMINATION TYPE: MR cervical wo con DATE OF EXAM: 11/11/2023 COMPARISON: NONE HISTORY: Neck and lower back pain, headaches, LUE/BLE radiculopathy. TECHNIQUE: T1 sagittal and coronal, T2 sagittal, and gradient echo axial views of the cervical spine are submitted. FINDINGS: The cranial cervical junction is preserved. There is no abnormal signal seen within the sp inal cord or paraspinal soft tissues. At C2-3 there is no disc herniation or canal stenosis. No foraminal encroachment. At C3-4 there is no disc herniation or canal stenosis. No foraminal encroachment. At C4-5 there is very minimal central disc bulging with no significant degenerative disc disease or d isc herniation. No foraminal encroachment. Minimal anterior listhesis grade 1. At C5-6 there is no disc herniation or canal stenosis. No foraminal encroachment. At C6-7 there is a broad-based central and left paracentral disc bulge. Mild uncovertebral joint hype rtrophy with mild left-sided foraminal encroachment. At C7-T1 there is no disc herniation or canal stenosis. No foraminal approach. IMPRESSION: 1. Broad-based Central and left paracentral disc bulge or small protrusion C6-C7 with mild left fora jodi encroachment. 2. Minimal central disc bulging C3-C4 with no canal stenosis.
== END | disposition home or self-care (01) ==
LOC: RADMRIMAIN 08:06
PROVIDERS: ATTEND Family Medicine
DX: M50.223 Other cervical disc displacement at C6-C7 level (principal); M50.31 Other cervical disc degeneration, high cervical region
CPT/HCPCS: 72141; 72148

== ENCOUNTER → 2023-11-18 | Outpatient (CLI) | payer OTHER ==
--- NOTE | 2023-11-18 11:01 | US ---
EXAMINATION TYPE: US carotid duplex BILAT DATE OF EXAM: 11/18/2023 COMPARISON: NONE CLINICAL INDICATION: Female, 63 years old with history of R07.9 CHEST PAIN Z95.5 I25.118 R42; TECHNIQUE: Carotid duplex ultrasound examination. Indirect Doppler criteria was utilized. FINDINGS: EXAM MEASUREMENTS: RIGHT: Peak Systolic Velocity (PSV) cm/sec ----- Right CCA: 80.0 ----- Right ICA: 78.2 ----- Right ECA: 66.6 ICA/CCA ratio: 1.0 RIGHT: End Diastole cm/sec ----- Right CCA: 23.2 ----- Right ICA: 31.2 ----- Right ECA: 0.0 LEFT: Peak Systolic Velocity (PSV) cm/sec ----- Left CCA: 89.9 ----- Left ICA: 80.3 ----- Left ECA: 60.8 ICA/CCA ratio: 0.9 LEFT: End Diastole cm/sec ----- Left CCA: 28.5 ----- Left ICA: 29.6 ----- Left ECA: 6.3 VERTEBRALS (direction of flow): Right Vertebral: Antegrade Left Vertebral: Antegrade Rhythm: Normal No significant stenosis IMPRESSION: 1. Minimal intimal thickening/plaque in the carotid bifurcations. 2. No hemodynamically significant stenosis based on peak systolic velocities and ratios Criteria for Assigning % of Stenosis / Diameter reduction (Estimation based on the indirect measurements of the internal carotid artery velocities (ICA PSV). 1. Normal (no stenosis)=ICA PSV < 125 cm/s: ratio < 2.0: ICA EDV<40 cm/s. 2. Less than 50% stenosis=ICA PSV < 125 cm/s: ratio < 2.0: ICA EDV<40 cm/s. 3. 50 to 69% stenosis=ICA PSV of 125 to 230 cm/s: ration 2.0 ? 4.0: ICA EDV 40-100 cm/s. 4. Greater than 70% stenosis to near occlusion= ICA PSV > 230 cm/s: ratio > 4.0: ICA EDV > 100 cm/s. 5. Near occlusion= ICA PSV velocities may be low or undetectable: variable ratio and ICA EDV. 6. Total occlusion=unable to detect flow.
== END | disposition home or self-care (01) ==
LOC: RADUSWWP 07:05
PROVIDERS: ATTEND Family Medicine
DX: I25.118 Atherosclerotic heart disease of native coronary artery with other forms of angina pectoris (principal); R42 Dizziness and giddiness; Z95.5 Presence of coronary angioplasty implant and graft
CPT/HCPCS: 93880

== ENCOUNTER → 2024-01-19 | Outpatient (CLI) | payer OTHER | LOC: PNWHC3 09:45 | DX: M47.26 Other spondylosis with radiculopathy, lumbar region (principal); Z88.2 Allergy status to sulfonamides; Z88.8 Allergy status to other drugs, medicaments and biological substances | CPT/HCPCS: 99211 ==

== ENCOUNTER → 2024-02-02 | Outpatient (CLI) | payer OTHER ==
--- NOTE | 2024-02-22 11:26 | MR ---
Site ID synapse default Patient Padmini Yun C ID [id number] Age/Gender: 63Y, F Order # N/A Procedure MR thoracic wo con Date 02/02/2024 5:16:31 PM INDICATION: Patient age: Female; 63 year old; Reason for study: Mid back pain COMPARISON: MR C-spine/L-spine 11/11/2023. TECHNIQUE: Multi planar, multi sequence imaging was performed of the thoracic spine without administr ation contrast. FINDINGS: The thoracic vertebral bodies have preserved heights. No spondylolisthesis. Minimal dextrocurvature o f the thoracic spine. The osseous structure have normal signal intensity. Thoracic spinal cord appear s unremarkable. Multilevel disc desiccation with minimal disc height loss. Mild signal noted involvin g the superior endplate of the T8 vertebral body. No abnormal STIR signal identified. Tiny central disc protrusion at T1-T2 without significant effacement of the anterior thecal sac. Small left paracentral disc protrusion at T9-T10 without significant effacement of the anterior theca l sac. Disc bulge at T11-T12 without significant effacement of the anterior thecal sac. No significant neural foraminal stenosis at any thoracic level. IMPRESSION: Small disc herniations at T1-T2 and T9-T10 without significant central canal stenosis. Disc bulge at T11-T12 without significant spinal canal stenosis. No significant neural foraminal stenosis at any th oracic level.
== END | disposition home or self-care (01) ==
LOC: RADMRIMAIN 18:15
PROVIDERS: ATTEND Orthopaedic Surgery
DX: M47.816 Spondylosis without myelopathy or radiculopathy, lumbar region (principal); M51.24 Other intervertebral disc displacement, thoracic region
CPT/HCPCS: 72146

== ENCOUNTER 2024-02-22 07:40 | Day surgery (SDC) | payer OTHER ==
[2024-02-22 08:00] VITALS: RESP 16; TEMP 97.6
[2024-02-22 08:15] LABS: Glucose,Whole Blood 129 mg/dL (70-110)
[2024-02-22] MEDS ORDERED: IOPAMIDOL M300 15ML VIAL ONE (08:31)
[2024-02-22] MEDS ORDERED: ROPIVACAINE 5MG/ML 20ML VIAL ONE (08:31)
[2024-02-22] MEDS ORDERED: methylPREDNISolone ACETATE 80 MG/ML 1 ML VIAL ONE (08:31)
--- NOTE | 2024-02-22 08:52 | P.PCN ---
Description of Procedure: PREOPERATIVE DIAGNOSIS: 1- Lumbar Degenerative Disc Diseases 2-Lumbar spondylosis with Facet arthropathy without myelopathy. 3-lumbar spinal stenosis POSTOPERATIVE DIAGNOSIS: 1-lumbar degenerative disc disease. 2-lumbar spondylosis with facet arthropathy without myelopathy. 3-lumbar spinal stenosis. PROCEDURE Injection of radio contrast material into L4-5 interspace, interpretation of epidurogram, injection of steroid at L4- 5 epidural space under fluoroscopic guidance. ANESTHESIA: Lidocaine 1% subcutaneously. In OR continuous pulse ox, EKG, blood pressure and verbal communication was maintained with the patient. EBL: Minimal PROCEDURE INDICATION: Before the procedure were discussed with the patient detailed procedure, alternatives, complications including infection, bleeding, nerve damage, paralysis all of which could be permanent. Patient understands and all questions were answered. PROCEDURE DESCRIPTION : After getting consent, patient in OR in prone position. Back was prepped with chlorhexidine and draped in sterile fashion. After injecting 10 mL of 1% lidocaine subcutaneously, a 20-gauge Tuohy needle was introduced at L4 5 interspace with loss of resistance technique using a syringe filled with air. Negative CSF, negative blood, negative paresthesia. Needle position was confirmed with AP and lateral view of the fluoroscope. After repeat negative aspiration 2 mL of Omnipaque 200 water soluble contrast was injected. Contrast was noted in the epidural space. No contrast was noted into intrathecal or intravascular space. After repeat negative aspiration 6 mL solution was injected intermittently which consists of 5 mL of preservative-free normal saline mixed with 1 mL of 80 mg Depo-Medrol. Needle was withdrawn intact. Skin was cleansed and Band-Aids was applied. DISPOSITION / PLANS: The patient tolerated the procedure well. No complication. The patient was placed in a supine position and transferred to the recovery area in a stable condition for observation. There was no evidence of lower extremity motor or sensory deficit after the procedure. Patient was discharged from the recovery room after meeting discharge criteria. Home discharge instructions were given to the patient by the staff. The patient was reexamined prior to discharge. The patient will schedule a follow up in the clinic in 2-4 weeks.
[2024-02-22 09:06] VITALS: BP 139/72; PULSE 65
--- NOTE | 2024-03-16 10:36 | FL ---
EXAMINATION TYPE: FL guided pain mgmt statistic DATE OF EXAM: 02/22/2024 8:47 AM COMPARISON: Pre Operative Images if available both CT/MRI or plain film CLINICAL INDICATION: Female, 63 years old with history of LESI; TECHNIQUE: FL guided pain mgmt statistic, multiple fluoroscopic images provided for procedure. Total fluoroscopy time: 11.8 seconds Total submitted images to PACS: 2 DAP: [id number] mGym2 Gycm2 uGym2 cGycm2 or equivalent. FINDINGS: Fluoroscopic images during injection for pain management demonstrate multilevel degeneration changes throughout the spine. No evidence for fracture. No acute process identified. IMPRESSION: 1. No evidence for intraoperative complication. 2. Please see the operative/procedural note for further details. [facility], , 03/16/2024 10:33 AM
== END 2024-02-22 09:20 | disposition home or self-care (01) ==
LOC: ORPAIN 07:40
PROVIDERS: ATTEND Pain Medicine Interventional Pain Medicine
DX: M47.816 Spondylosis without myelopathy or radiculopathy, lumbar region (principal); M48.061 Spinal stenosis, lumbar region without neurogenic claudication; M51.36 Other intervertebral disc degeneration, lumbar region
CPT/HCPCS: 62323

== ENCOUNTER → 2024-03-08 | Outpatient (CLI) | payer OTHER ==
[2024-03-08 10:18] VITALS: BP 113/65; PULSE 65; RESP 16; TEMP 97.6
--- NOTE | 2024-03-08 15:31 | P.PAINPG ---
PQRS Measure Charge Sheet Comment: A 63 yr old female with a history of severe and chronic thoracolumbar pain > 3 mo secondary to radiculopathy, spondylosis with facet arthropathy without myelopathy presents today for evaluation s/p XENA L4-L5 #1. Pt [id number] she experienced 50 % pain relief x 2 wks s/p procedure. Pain level is provoked at 7 /10 in intensity, constant, predominantly axial, localized in the thoracolumbar spine, sharp in character w occasional shooting towards the flanks. Pain is provoked by over activity. Pain is alleviated with PT x 6 wks which ended in October 2023 (lumbar), massage therapy semi monthly since Dec 2023 (thoracic), chiropractic treatments monthly as needed, physician guided home exercise regimen every other day since October 2023 (thoracolumbar), heat, medications, topical, repositioning and rest. Interventional pain procedures completed include XENA L4-L5 x1 Patient is currently on Robaxin, Tyl Patient denies any side effects of the medication(s), denies excessive drowsiness or sleepiness, denies suicidal ideation and reports that the current pain medication is helping to control the pain and improve activities of daily living. Patient denies any motor or sensory deficits. Patient denies any fever or night sweats, denies any change in the bowel movements or urination. Physical Examination: -Constitutional: Cooperative. Not in acute distress . - Neurologic: Cranial nerve II to XII intact. No focal neurological deficits. - Psychatric: Alert & oriented x 3. Matching mood & appropriate affect. [place] gment and insight intact. - Musculoskeletal: Cervical spine: Muscle bulk/ tone/ strength in the bilateral upper extremities normal Vertebral body tenderness to palpation over Spurling test positive Distraction test positive Facet loading test positive TTP Thoracic spine Muscle bulk / tone/ strength in the bilateral paraspinal muscles normal Vertebral body tender to palpation over T10 Light test positive BL T9-T10 Facet loading test positive TTP Lumbar spine: Motor bulk/ tone/ strength lower extremities , thigh and legs : 5/5 Deep tendon reflexes : Normal Knee Jerk. Normal Ankle Jerk . Vertebral body tenderness to palpation over L4 Light Test positive BL L4-L5 Lumbar Facet Loading Test positive Straight Leg Raise: positive at 30 degrees right side/ left side Gaenslen's Test positive Sacral spine : Severe tenderness over the Sacroiliac joint: right side / left side Range of motion: Flexion of the lumbar spine <60 degrees Range of motion: Extension of the lumbar spine <20 degrees Gaenslen's Test positive right side / left side Herlinda test: positive right side / left side Thigh Thrust Test positive right side / left side Sacral Thrust Test positive right side / left side Imaging: MRI non contrast thoracic spine 02/02/24 reviewed Assessment and plan: Chronic thoracolumbar pain secondary to radiculopathy, spondylosis with facet arthropathy without myelopathy Recommendation of XENA T9-T10 #1. Risks, benefits of procedure discussed and pt verbalized understanding. Admits to anticoagulant use or medical history of diabetes. Protocol for discontinuation/ continuation of medications naresh procedure discussed. All questions answered. I have spent less than 30 minutes on patient care today. Dr Horner was available by phone for the evaluation of this patient. The time was used to review the medical records including relevant urine studies and Prescription history (MAPs), review of the available imaging, evaluation and examination of the patient, coordination of care with the medical staff and if applicable referring physicians, as well as creation of the medical record PQRS Narrative: Smoking Status Never smoker Home Medications: Ambulatory Orders Ascorbic Acid [Vitamin C] 500 mg PO DAILY 04/22/21 Atorvastatin [Lipitor] 40 mg PO HS 04/22/21 Cholecalciferol [Vitamin D3 (25 Mcg = 1000 Iu)] 25 mcg PO DAILY 04/22/21 Levothyroxine Sodium [Synthroid] 137 mcg PO DAILY 04/22/21 Magnesium 250 mg PO DAILY 04/22/21 Multivitamins, Thera [Multivitamin (formulary)] 1 tab PO DAILY 04/22/21 Aspirin 81 mg PO DAILY #30 tab 04/24/21 Empagliflozin [Jardiance] 10 mg PO QAM 02/17/24 LORazepam [Ativan] 0.5 mg PO DAILY PRN 02/17/24 Metoprolol Succinate [Metoprolol Succinate ER] 25 mg PO HS 02/17/24 Rimegepant Sulfate [Nurtec Odt] 75 mg PO DAILY PRN 02/17/24 Semaglutide [Ozempic] 2 mg SQ WEEKLY 02/17/24 Sertraline HCl [Zoloft] 100 mg PO HS 02/17/24 Controlled Substance Measures - Controlled Substance Measures Is patient prescribed a controlled substance at discharge?: No
== END ==
LOC: PNWHC3 09:51
PROVIDERS: ATTEND Specialist
DX: M47.24 Other spondylosis with radiculopathy, thoracic region (principal); Z88.8 Allergy status to other drugs, medicaments and biological substances; Z88.2 Allergy status to sulfonamides
CPT/HCPCS: 99211

== ENCOUNTER 2024-04-07 06:23 | Day surgery (SDC) | payer OTHER ==
[2024-04-05 16:07] VITALS: BMI 28.5
[~2024-04-07 06:23] MED LIST: LACTATED RINGERS 1,000 ML IV SCH
[2024-04-07 06:47] VITALS: RESP 16; TEMP 97.2
[2024-04-07 06:49] LABS: Glucose,Whole Blood 120 mg/dL (70-110)
[2024-04-07] MEDS ORDERED: methylPREDNISolone ACETATE 40 MG/ML 1 ML VIAL ONE (07:03)
[2024-04-07] MEDS ORDERED: IOPAMIDOL M200 10 ML VIAL ONE (07:03)
--- NOTE | 2024-04-07 07:20 | P.PCN ---
Date of Procedure: 04/07/24 Procedure(s) Performed: PREOPERATIVE DIAGNOSIS: 1-thoracic herniated disc Diseases 2-thoracic radiculopathy POSTOPERATIVE DIAGNOSIS: Same as preop diagnosis PROCEDURE 1. Thoracic epidural steroid injection under fluoroscopic guidance at the T9-10 level. (Fluoroscopy imaging was available in radiology department) 2. Thoracic epidurogram. ANESTHESIA: Lidocaine 1% 3 and then only. EBL: Minimal PROCEDURE INDICATION: The patient with mid back pain and radiculitis symptoms unresponsive to conservative treatment. Fluoroscopy was used to optimize visualization of the needle placement and to maximize safety. PROCEDURE DESCRIPTION / TECHNIQUE: The patient was seen and identified in the preoperative area. Risks, benefits, complications including but not limited to infections ,bleeding ,allergic reaction to the medications ,nerve damage and not complete pain releife , and alternatives were discussed with the patient. The patient agreed to proceed with the procedure and signed the consent, and vital signs were stable. Patient was taken to the OR and time out was completed. The patient was placed in the prone position on procedure table. The thoracic area was prepped and draped in the usual sterile fashion.ere closely monitored during the procedure. Vital signs was monitered during the entire procedure. Using anterior-posterior fluoroscopy, the T9-10 interlaminar space was identified and the skin over this site was marked and then infiltrated with 1% lidocaine subcutaneously. Subsequently, a 20-gauge Tuohy epidural needle was inserted and advanced toward the epidural space using the ``Loss of resistance technique and guided by AP and lateral fluoroscopy. The correct needle position in the epidural space was verified with the injection of 2 mL of the water soluble contrast dye Isovue 200 contrast and observing an excellent epidurogram with the epidural spread of the dye, after negative aspiration for blood and CSF and in the absence of paresthesias. Again after negative aspiration, a 6 ml mixture containing 40 mg of Depo-medrol ( Preservetive Free ), and 2 ml of pr eservative free Normal Saline, and 2 ml of preservative free lidocaine 1% solution was injected and a washout of epidurogram was seen. Needle was withdrawn intact, skin was cleansed, and bandages were applied. COMPLICATIONS: None DISPOSITION / PLANS: The patient was placed in a supine position and transferred to the recovery area in a stable condition for observation. There was no evidence of lower extremity motor or sensory deficit after the procedure. Patient was discharged from the recovery room after meeting discharge criteria. Home discharge instructions were given to the patient by the staff. The patient was reexamined prior to discharge. The patient will schedule a follow up in the clinic in 2-4 weeks.
[2024-04-07 07:32] VITALS: BP 110/68; PULSE 64
--- NOTE | 2024-04-07 09:28 | FL ---
EXAMINATION TYPE: FL guided pain mgmt statistic DATE OF EXAM: 04/07/2024 FLUOROSCOPY [facility] in pain services [place] time 5.8 secs dap [id number] One image submitted. [facility], , 04/07/2024 8:59 AM
== END 2024-04-07 07:37 | disposition home or self-care (01) ==
LOC: ORPAIN 06:23
PROVIDERS: ATTEND Specialist
DX: M51.14 Intervertebral disc disorders with radiculopathy, thoracic region (principal); Z88.2 Allergy status to sulfonamides; Z88.8 Allergy status to other drugs, medicaments and biological substances
CPT/HCPCS: 62321; Q9966; J1010

== ENCOUNTER → 2024-04-13 | Outpatient (CLI) | payer OTHER ==
[2024-04-13 07:53] VITALS: BP 105/71; PULSE 74; RESP 16
--- NOTE | 2024-04-17 07:38 | P.PAINPG ---
Objective - Vital Signs Vital signs: Vital Signs Temp Pulse 74 04/13/24 07:50 Resp 16 04/13/24 07:50 BP 105/71 04/13/24 07:50 Pulse Ox 97 04/13/24 07:50 FiO2 Intake & Output 04/12/24 04/13/24 04/13/24 18:59 06:59 18:59 Weight 80.286 kg PQRS Measure Charge Sheet Mode of Arrival: Ambulatory Comment: A 64 yr old female with a history of severe and chronic thoracolumbar pain > 3 mo secondary to radiculopathy, spondylosis with facet arthropathy without myelopathy presents today for evaluation s/p XENA T9-T10 #1. Pt states she experienced 50 % pain relief s/p procedure. Pain level is provoked at 3 /10 in intensity, constant, predominantly axial, localized in the thoracolumbar spine, sharp in character w occasional shooting towards the flanks. Pain is provoked by over activity. Pain is alleviated with PT x 6 wks which ended in October 2023 (lumbar), massage therapy semi monthly since Dec 2023 (thoracic), chiropractic treatments monthly as needed, physician guided home exercise regimen every other day since October 2023 (thoracolumbar), heat, medications, topical, repositioning and rest. Interventional pain procedures completed include XENA L4-L5 x1, XENA T9-T10 x1 Patient is currently on Robaxin, Tyl Patient denies any side effects of the medication(s), denies excessive drowsiness or sleepiness, denies suicidal ideation and reports that the current pain medication is helping to control the pain and improve activities of daily living. Patient denies any motor or sensory deficits. Patient denies any fever or night sweats, denies any change in the bowel movements or urination. Physical Examination: -Constitutional: Cooperative. Not in acute distress . - Neurologic: Cranial nerve II to XII intact. No focal neurological deficits. - Psychatric: Alert & oriented x 3. Matching mood & appropriate affect. Judgment and insight intact. - Musculoskeletal: Cervical spine: Muscle bulk/ tone/ strength in the bilateral upper extremities normal Vertebral body tenderness to palpation over Spurling test positive Distraction test positive Facet loading test positive TTP Thoracic spine Muscle bulk / tone/ strength in the bilateral paraspinal muscles normal Vertebral body tender to palpation over T10 Light test positive BL T9-T10 Facet loading test positive TTP Lumbar spine: Motor bulk/ tone/ strength lower extremities , thigh and legs : 5/5 Deep tendon reflexes : Normal Knee Jerk. Normal Ankle Jerk . Vertebral body tenderness to palpation over L4 Light Test positive BL L4-L5 Lumbar Facet Loading Test positive Straight Leg Raise: positive at 30 degrees right side/ left side Gaenslen's Test positive Sacral spine : Severe tenderness over the Sacroiliac joint: right side / left side Range of motion: Flexion of the lumbar spine <60 degrees Range of motion: Extension of the lumbar spine <20 degrees Gaenslen's Test positive right side / left side Herlinda test: positive right side / left side Thigh Thrust Test positive right side / left side Sacral Thrust Test positive right side / left side Imaging: MRI non contrast thoracic spine 02/02/24 reviewed Assessment and plan: Chronic thoracolumbar pain secondary to radiculopathy, spondylosis with facet arthropathy without myelopathy Recommendation of medication management. Diclofenac gel apply QD for pain. Use, side effects, adverse reactions, safe storage discussed. All questions answered. I have spent less than 30 minutes on patient care today. Dr Horner was available by phone for the evaluation of this patient. The time was used to review the medical records including relevant urine studies and Prescription history (MAPs), review of the available imaging, evaluation and examination of the patient, coordination of care with the medical staff and if applicable referring physicians, as well as creation of the medical record - Pain Location Back Non-Pharmacological Interventions: Chiropractic Treatment, Heat, Massage, Physical Therapy Pharmacological Interventions: Epidural, Medication, Topical Medication PQRS Narrative: Smoking Status Never smoker Blood Pressure 105/71 Pain Intensity [Back] 3 Scale Used Numeric (1 - 10) Hx Alcohol Use (MH) No Home Medications: Ambulatory Orders Ascorbic Acid [Vitamin C] 500 mg PO DAILY 04/22/21 Cholecalciferol [Vitamin D3 (25 Mcg = 1000 Iu)] 25 mcg PO DAILY 04/22/21 Levothyroxine Sodium [Synthroid] 137 mcg PO DAILY 04/22/21 Magnesium 250 mg PO DAILY 04/22/21 Multivitamins, Thera [Multivitamin (formulary)] 1 tab PO DAILY 04/22/21 Aspirin 81 mg PO DAILY #30 tab 04/24/21 Empagliflozin [Jardiance] 10 mg PO HS 02/17/24 LORazepam [Ativan] 0.5 mg PO DAILY PRN 02/17/24 Metoprolol Succinate [Metoprolol Succinate ER] 25 mg PO HS 02/17/24 Rimegepant Sulfate [Nurtec Odt] 75 mg PO DAILY PRN 02/17/24 Semaglutide [Ozempic] 2 mg SQ WEEKLY 02/17/24 Sertraline HCl [Zoloft] 100 mg PO HS 02/17/24 Diclofenac Sodium Gel [Voltaren 1% Gel] 50 gm TOPICAL DAILY 30 Days #1 each 04/13/24 Controlled Substance Measures - Controlled Substance Measures Is patient prescribed a controlled substance at discharge?: No
== END ==
LOC: PNWHC3 07:34
PROVIDERS: ATTEND Specialist
DX: M47.23 Other spondylosis with radiculopathy, cervicothoracic region (principal); Z88.8 Allergy status to other drugs, medicaments and biological substances; Z88.2 Allergy status to sulfonamides
CPT/HCPCS: 99211

== ENCOUNTER → 2024-11-02 | Outpatient (CLI) | payer OTHER ==
[2024-11-02 09:07] VITALS: BP 104/69; PULSE 65; RESP 16; TEMP 97.1
--- NOTE | 2024-11-02 16:55 | P.PAINPG ---
PQRS Measure Charge Sheet Comment: A 64 yr old female with a history of severe and chronic thoracolumbar pain > 3 mo secondary to radiculopathy, spondylosis with facet arthropathy without myelopathy presents today for evaluation. Pain level is provoked at 8 /10 in intensity, constant, predominantly axial, localized in the thoracolumbar spine, sharp in character w occasional shooting towards the flanks. Pain is provoked by over activity. Pain is alleviated with PT x 6 wks which ended in Feb 2024 (lumbar), massage therapy semi monthly since Dec 2023 (thoracic), chiropractic treatments monthly as needed, physician guided home exercise regimen every other day since October 2023 (thoracolumbar), heat, medications, topical, repositioning and rest. Interventional pain procedures completed include XENA L4-L5 x1, XENA T9-T10 x1 Patient is currently on Robaxin, Tyl (Discontinued THC "salve") Patient denies any side effects of the medication(s), denies excessive drowsiness or sleepiness, denies suicidal ideation and reports that the current pain medication is helping to control the pain and improve activities of daily living. Patient denies any motor or sensory deficits. Patient denies any fever or night sweats, denies any change in the bowel movements or urination. Physical Examination: -Constitutional: Cooperative. Not in acute distress . - Neurologic: Cranial nerve II to XII intact. No focal neurological deficits. - Psychatric: Alert & oriented x 3. Matching mood & appropriate affect. Judgment and insight intact. - Musculoskeletal: Cervical spine: Muscle bulk/ tone/ strength in the bilateral upper extremities normal Vertebral body tenderness to palpation over Spurling test positive Distraction test positive Facet loading test positive TTP Thoracic spine Muscle bulk / tone/ strength in the bilateral paraspinal muscles normal Vertebral body tender to palpation over T10 Light test positive BL T9-T10 Facet loading test positive TTP Lumbar spine: Motor bulk/ tone/ strength lower extremities , thigh and legs : 5/5 Deep tendon reflexes : Normal Knee Jerk. Normal Ankle Jerk . Vertebral body tenderness to palpation over L4 Light Test positive BL L4-L5 Lumbar Facet Loading Test positive Straight Leg Raise: positive at 30 degrees right side/ left side Gaenslen's Test positive Sacral spine : Severe tenderness over the Sacroiliac joint: right side / left side Range of motion: Flexion of the lumbar spine <60 degrees Range of motion: Extension of the lumbar spine <20 degrees Gaenslen's Test positive right side / left side Herlinda test: positive right side / left side Thigh Thrust Test positive right side / left side Sacral Thrust Test positive right side / left side Imaging: MRI non contrast thoracic spine 02/02/24 reviewed Assessment and plan: Chronic thoracolumbar pain secondary to radiculopathy, spondylosis with facet arthropathy without myelopathy Recommendation of medication management. Ultram 50mg #60, Diclofenac gel, Flexeril #30 w RF. Opiate/ narcotic agreement signed 08/03/24. UDS collected 11/02/24. Use, side effects, adverse reactions, safe storage discussed. Aware to stop any salve that may contain THC while taking Ultram. All questions answered. I have spent less than 30 minutes on patient care today. Dr Horner was available by phone for the evaluation of this patient. The time was used to review the medical records including relevant urine studies and Prescription history (MAPs), review of the available imaging, evaluation and examination of the patient, coordination of care with the medical staff and if applicable referring physicians, as well as creation of the medical record - Pain Location Right Lower Back Non-Pharmacological Interventions: Chiropractic Treatment, Exercise, Heat, Home Exercise, Ice, Inactivity, Massage, Physical Therapy, Position/Reposition, Relaxation Technique, Stretching Pharmacological Interventions: PRN Medication, Scheduled Medication, Topical Medication PQRS Narrative: Smoking Status Never smoker Narcotic Agreement Date Signed 08/03/24 Hx Alcohol Use (MH) No Home Medications: Ambulatory Orders Ascorbic Acid [Vitamin C] 500 mg PO DAILY 04/22/21 Cholecalciferol [Vitamin D3 (25 Mcg = 1000 Iu)] 25 mcg PO DAILY 04/22/21 Levothyroxine Sodium [Synthroid] 137 mcg PO DAILY 04/22/21 Magnesium 250 mg PO DAILY 04/22/21 Multivitamins, Thera [Multivitamin (formulary)] 1 tab PO DAILY 04/22/21 Aspirin 81 mg PO DAILY #30 tab 04/24/21 Empagliflozin [Jardiance] 10 mg PO HS 02/17/24 LORazepam [Ativan] 0.5 mg PO DAILY PRN 02/17/24 Metoprolol Succinate [Metoprolol Succinate ER] 25 mg PO HS 02/17/24 Rimegepant Sulfate [Nurtec Odt] 75 mg PO DAILY PRN 02/17/24 Semaglutide [Ozempic] 2 mg SQ WEEKLY 02/17/24 Sertraline HCl [Zoloft] 100 mg PO HS 02/17/24 Cyclobenzaprine [Flexeril] 5 mg PO HS 30 Days #30 tab 11/02/24 Diclofenac Sodium Gel [Voltaren 1% Gel] 50 gm TOPICAL DAILY 30 Days #1 each 11/02/24 traMADol HCl [Ultram] 50 mg PO BID PRN 30 Days #60 tab 11/02/24 Controlled Substance Measures - Controlled Substance Measures Is patient prescribed a controlled substance at discharge?: Yes When asked, does pt state using other controlled substances?: Yes If prescribed controlled substance>3 days was MAPS reviewed?: Yes
== END ==
LOC: PNWHC3 08:47
PROVIDERS: ATTEND Specialist
DX: M47.25 Other spondylosis with radiculopathy, thoracolumbar region (principal); Z88.2 Allergy status to sulfonamides; Z88.8 Allergy status to other drugs, medicaments and biological substances
CPT/HCPCS: 80307; 99211

== ENCOUNTER → 2024-12-27 | Outpatient (CLI) | payer OTHER ==
[2024-12-27 08:26] VITALS: BP 106/69; PULSE 61; RESP 15
--- NOTE | 2025-01-01 16:14 | P.PAINPG ---
Objective - Vital Signs Vital signs: Intake & Output 12/26/24 12/27/24 12/27/24 18:59 06:59 18:59 Weight 83.461 kg PQRS Measure Charge Sheet Comment: A 64 yr old female with a history of severe and chronic thoracolumbar pain > 3 mo secondary to radiculopathy, spondylosis with facet arthropathy without myelopathy presents today for evaluation. Pain level is provoked at 8 /10 in intensity, constant, predominantly axial, localized in the thoracolumbar spine, sharp in character w occasional shooting towards the flanks. Pain is provoked by over activity. Pain is alleviated with PT x 6 wks which ended in Feb 2024 (lumbar), massage therapy semi monthly since Dec 2023 (thoracic), chiropractic treatments monthly as needed, physician guided home exercise regimen every other day since October 2023 (thoracolumbar), heat, medications, topical, repositioning and rest. UDS 11/02/24 +Presumptive ETOH metabolites, +Presumptive Tramadol. Will recheck UDS Interventional pain procedures completed include XENA L4-L5 x1, XENA T9-T10 x1 Patient is currently on Robaxin, Tyl (Discontinued THC "salve") Patient denies any side effects of the medication(s), denies excessive drowsiness or sleepiness, denies suicidal ideation and reports that the current pain medication is helping to control the pain and improve activities of daily living. Patient denies any motor or sensory deficits. Patient denies any fever or night sweats, denies any change in the bowel movements or urination. Physical Examination: -Constitutional: Cooperative. Not in acute distress . - Neurologic: Cranial nerve II to XII intact. No focal neurological deficits. - Psychatric: Alert & oriented x 3. Matching mood & appropriate affect. Judgment and insight intact. - Musculoskeletal: Cervical spine: Muscle bulk/ tone/ strength in the bilateral upper extremities normal Vertebral body tenderness to palpation over Spurling test positive Distraction test positive Facet loading test positive TTP Thoracic spine Muscle bulk / tone/ strength in the bilateral paraspinal muscles normal Vertebral body tender to palpation over T10 Light test positive BL T9-T10 Facet loading test positive TTP Lumbar spine: Motor bulk/ tone/ strength lower extremities , thigh and legs : 5/5 Deep tendon reflexes : Normal Knee Jerk. Normal Ankle Jerk . Vertebral body tenderness to palpation over L4 Light Test positive BL L4-L5 Lumbar Facet Loading Test positive Straight Leg Raise: positive at 30 degrees right side/ left side Gaenslen's Test positive Sacral spine : Severe tenderness over the Sacroiliac joint: right side / left side Range of motion: Flexion of the lumbar spine <60 degrees Range of motion: Extension of the lumbar spine <20 degrees Gaenslen's Test positive right side / left side Herlinda test: positive right side / left side Thigh Thrust Test positive right side / left side Sacral Thrust Test positive right side / left side Imaging: MRI non contrast thoracic spine 02/02/24 reviewed Assessment and plan: Chronic thoracolumbar pain secondary to radiculopathy, spondylosis with facet arthropathy without myelopathy Recommendation of medication management. Ultram 50mg #60, Diclofenac gel, Flexeril #30 w RF. Opiate/ narcotic agreement signed 08/03/24. UDS recollected 12/27/24. Use, side effects, adverse reactions, safe storage discussed. Aware to stop any salve that may contain THC while taking Ultram. All questions answered. I have spent less than 30 minutes on patient care today. Dr Horner was available by phone for the evaluation of this patient. The time was used to review the medical records including relevant urine studies and Prescription history (MAPs), review of the available imaging, evaluation and examination of the patient, coordination of care with the medical staff and if applicable referring physicians, as well as creation of the medical record PQRS Narrative: Smoking Status Never smoker Narcotic Agreement Date Signed 08/03/24 Hx Alcohol Use (MH) No Home Medications: Ambulatory Orders Ascorbic Acid [Vitamin C] 500 mg PO DAILY 04/22/21 Cholecalciferol [Vitamin D3 (25 Mcg = 1000 Iu)] 25 mcg PO DAILY 04/22/21 Levothyroxine Sodium [Synthroid] 137 mcg PO DAILY 04/22/21 Magnesium 250 mg PO DAILY 04/22/21 Multivitamins, Thera [Multivitamin (formulary)] 1 tab PO DAILY 04/22/21 Aspirin 81 mg PO DAILY #30 tab 04/24/21 Empagliflozin [Jardiance] 10 mg PO HS 02/17/24 LORazepam [Ativan] 0.5 mg PO DAILY PRN 02/17/24 Metoprolol Succinate [Metoprolol Succinate ER] 25 mg PO HS 02/17/24 Rimegepant Sulfate [Nurtec Odt] 75 mg PO DAILY PRN 02/17/24 Semaglutide [Ozempic] 2 mg SQ WEEKLY 02/17/24 Sertraline HCl [Zoloft] 100 mg PO HS 02/17/24 Cyclobenzaprine [Flexeril] 5 mg PO HS 30 Days #30 tab 11/02/24 Diclofenac Sodium Gel [Voltaren 1% Gel] 50 gm TOPICAL DAILY 30 Days #1 each 11/02/24 traMADol HCl [Ultram] 50 mg PO BID PRN 30 Days #60 tab 11/02/24 Controlled Substance Measures - Controlled Substance Measures Is patient prescribed a controlled substance at discharge?: Yes When asked, does pt state using other controlled substances?: No If prescribed controlled substance>3 days was MAPS reviewed?: Yes
== END ==
LOC: PNWHC3 08:10
PROVIDERS: ATTEND Specialist
DX: M47.25 Other spondylosis with radiculopathy, thoracolumbar region (principal); Z88.8 Allergy status to other drugs, medicaments and biological substances; Z88.2 Allergy status to sulfonamides
CPT/HCPCS: 80307; 99212